=== PATIENT | male | born 1955 | race Caucasian/White ===

== ENCOUNTER → 2020-11-02 14:17 | Outpatient (BNVA) | payer MEDICARE, SELFPAY | PROVIDERS: PCP Nurse Practitioner Family; Visit Provider Physician Assistant Medical | DX: Z76.89 Persons encountering health services in other specified circumstances (principal) | CPT/HCPCS: G0296 ==

== ENCOUNTER 2022-02-07 11:40 | Outpatient (REF) | payer MEDICARE, SELFPAY ==
[2022-02-07 13:52] LABS: Appearance Urine CLEAR; Color Urine YELLOW; Glucose Urine UA NEG (NEG); Leukocyte Esterase Urine NEG (NEG); Nitrite Urine NEG (NEG); PH 6.5 (5.0-8.0); Urine Blood NEG (NEG); Urine Ketones NEG (NEG); Urine Protein NEG (NEG-TRACE)
[2022-02-07 13:59] LABS: Alanine Aminotransferase 15 U/L (0-40); Albumin Level 3.9 g/dL (3.5-5.0); Alkaline Phosphatase 68 U/L (39-117); Anion Gap 10 (12-20); Aspartate Amino Transferase 14 U/L (5-37); Bilirubin Total 0.6 mg/dL (0.0-1.0); Blood Urea Nitrogen 15 mg/dL (9-16); Carbon Dioxide 27 mmol/L (22-29); Chloride 105 mmol/L (96-108); Cholesterol 193 mg/dL; Estimated Glomerular Filt Rate > 60; Glucose Fasting 107 mg/dL (60-99); HDL Cholesterol 39 mg/dL; LDL Cholesterol Calculated 119 mg/dl; Potassium 4.1 mmol/L (3.3-5.1); Sodium 138 mmol/L (135-145); Total Protein 6.7 g/dL (6.5-8.0); Triglycerides 175 mg/dL
[2022-02-07 14:24] LABS: Prostate Specific Antigen Scr < 0.05 ng/mL (<0.05-4.0); TSH reflex Free T4 1.91 uIU/mL (0.32-4.0)
== END 2022-02-07 11:41 | disposition home or self-care (01) ==
LOC: HO.HMGCLDS 11:40
PROVIDERS: PCP Nurse Practitioner Family; Visit Provider Nurse Practitioner Family
DX: Z00.00 Encounter for general adult medical examination without abnormal findings (principal); Z12.5 Encounter for screening for malignant neoplasm of prostate
CPT/HCPCS: 36415; 80053; 80061; 81003; 84153; 84443

== ENCOUNTER 2022-11-13 08:50 | Outpatient (REF) | payer MEDICARE, SELFPAY ==
[2022-11-13 11:20] LABS: MANUAL DIFF FLAG NO
[2022-11-13 11:31] LABS: Appearance Urine Hazy; Color Urine Yellow; Glucose Urine UA Negative (Negative); Leukocyte Esterase Urine Negative (Negative); Nitrite Urine Negative (Negative); PH 6.5 (5.0-9.0); UMIC TRIGGER UACC YES; Urine Blood Trace (Negative); Urine Ketones Negative (Negative); Urine Protein Negative (Neg-Trace)
[2022-11-13 11:44] LABS: Basophils Percent Auto 0.2 % (0-2); Eosinophils Absolute Auto 0.1 X10*3/uL (0.0-0.4); Eosinophils Percent Auto 1.3 % (0-4); Hemoglobin 14.3 g/dl (14.0-18.0); Imm Gran Abs Auto 0.04 X10*3/uL (0.00-0.03); Imm Gran Pct Auto 0.4 % (0.0-0.4); Lymphocytes Absolute Auto 1.5 X10*3/uL (1.2-4.9); Lymphocytes Percent Auto 16.1 % (20-40); Mean Corpuscular Hemoglobin 30.7 pg (27.0-33.0); Mean Corpuscular Volume 90.1 fL (80.0-98.0); Mean Platelet Volume 9.3 fL (9.4-12.4); Monocytes Absolute Auto 0.8 X10*3/uL (0.1-1.2); Monocytes Percent Auto 8.5 % (2-11); Neutrophils Absolute Auto 6.9 x10*3/uL (2.0-8.3); Neutrophils Percent Auto 73.5 % (45-73); Platelet Count 224 X10*3/uL (160-400); Red Blood Count 4.66 X10*6/uL (4.60-5.80); Red Cell Distribution Width 12.6 % (11.0-16.0); White Blood Count 9.4 X10*3/uL (4.8-10.8)
[2022-11-13 11:49] LABS: Bacteria Urine None Seen (None Seen); Hyaline Casts Urine 0-2 /LPF (0-2); RBC Urine 0-2 /HPF (0-2); Squamous Epithelial Cell Urine 0-2 /HPF (0-2); WBC Urine 0-5 /HPF (0-5)
[2022-11-13 14:01] LABS: Alanine Aminotransferase 11 U/L (0-40); Alkaline Phosphatase 70 U/L (39-117); Anion Gap 12 (12-20); Aspartate Amino Transferase 12 U/L (5-37); Bilirubin Total 0.9 mg/dL (0.0-1.0); Blood Urea Nitrogen 14 mg/dL (9-16); Calcium 8.8 mg/dL (8.4-10.2); Carbon Dioxide 26 mmol/L (22-29); Chloride 101 mmol/L (96-108); Cholesterol 184 mg/dL; Estimated Glomerular Filt Rate > 60; Glucose Fasting 105 mg/dL (60-99); HDL Cholesterol 38 mg/dL; LDL Cholesterol Calculated 128 mg/dl; Potassium 4.5 mmol/L (3.3-5.1); Sodium 134 mmol/L (135-145); TSH reflex Free T4 1.86 uIU/mL (0.32-4.0); Total Protein 6.9 g/dL (6.5-8.0); Triglycerides 93 mg/dL
== END 2022-11-13 08:51 | disposition home or self-care (01) ==
LOC: HO.HMGCLDS 08:50
PROVIDERS: PCP Nurse Practitioner Family; Visit Provider Nurse Practitioner Family
DX: I10 Essential (primary) hypertension (principal)
CPT/HCPCS: 36415; 80053; 80061; 81001; 84443; 85025

== ENCOUNTER 2025-07-14 15:20 | Outpatient (AMB) | payer MEDICARE, SELFPAY ==
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
[2025-07-14 15:24] VITALS: BP 138/74; PULSE 97; TEMP 37; O2SAT 97; BMI 21.3
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
== END 2025-07-14 16:08 | disposition home or self-care (01) ==
PROVIDERS: Visit Provider Physician Assistant
DX: R31.0 Gross hematuria (principal); Z91.89 Other specified personal risk factors, not elsewhere classified

== ENCOUNTER → 2025-07-14 15:20 | Outpatient (BNVA) | payer MEDICARE, SELFPAY | PROVIDERS: Visit Provider Physician Assistant | DX: R31.0 Gross hematuria (principal); Z91.89 Other specified personal risk factors, not elsewhere classified | CPT/HCPCS: 99212 ==

== ENCOUNTER 2025-07-14 16:34 | Emergency (ER) | payer OTHER, SELFPAY ==
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
[2025-07-14 16:47] VITALS: BP 158/86; PULSE 95; RESP 18; TEMP 36.6; O2SAT 98; BMI 21.3
[2025-07-14 17:13] LABS: MANUAL DIFF FLAG NO
[2025-07-14 17:14] LABS: Hematocrit 37.5 % (42.0-52.0); Hemoglobin 12.6 g/dl (14.0-18.0); Imm Gran Abs Auto 0.06 X10*3/uL (0.00-0.03); Imm Gran Pct Auto 0.5 % (0.0-0.4); Lymphocytes Absolute Auto 1.9 X10*3/uL (1.2-4.9); Mean Corpuscular HGB Conc 33.6 g/dl (31.0-36.0); Mean Corpuscular Hemoglobin 29.2 pg (27.0-33.0); Mean Corpuscular Volume 87.0 fL (80.0-98.0); NRBC Abs Auto 0.000 X10*3/uL (0.0-0.012); NRBC Pct Auto 0.0 /100WBC (0.0-0.2); Platelet Count 286 X10*3/uL (160-400); Red Blood Count 4.31 X10*6/uL (4.60-5.80); White Blood Count 11.9 X10*3/uL (4.8-10.8)
[2025-07-14 17:27] LABS: Alanine Aminotransferase 11 U/L (0-40); Albumin Level 3.6 g/dL (3.5-5.0); Alkaline Phosphatase 66 U/L (39-117); Anion Gap 13 (12-20); Aspartate Amino Transferase 16 U/L (5-37); Blood Urea Nitrogen 21 mg/dL (9-16); Calcium 9.1 mg/dL (8.4-10.2); Carbon Dioxide 29 mmol/L (22-29); Chloride 99 mmol/L (96-108); Creatinine Clr Calc Pharmacy 77.3; Estimated Glomerular Filt Rate > 60; Potassium 4.3 mmol/L (3.3-5.1); Sodium 137 mmol/L (135-145); Total Protein 7.4 g/dL (6.5-8.0)
--- NOTE | 2025-07-14 21:00 | PC.NURSE ---
Went into patient's room to place IV and get patient changed into hospital attire for CT scan. Patient stating I dont want no fucking IV, I wanna get outta here . Provider Chalino made aware. Chalino to bedside, explained to patient importance of needing IV and CT scan again. Patient insistent he does not want a scan, just wants to go home. Support person Magalys stating she will not leave until patient is scanned. Patient still demanding to leave. AMA form signed by patient. Patient awaiting for support person to finish talking to provider to leave.
[2025-07-14 21:17] VITALS: BP 158/86; PULSE 95; RESP 18; TEMP 36.6; O2SAT 98
== END 2025-07-14 21:18 | disposition left against medical advice (07) ==
PROVIDERS: Nurse Practitioner Family; Emergency Provider Emergency Medicine; PCP Nurse Practitioner Family
DX: K92.2 Gastrointestinal hemorrhage, unspecified (principal); F17.210 Nicotine dependence, cigarettes, uncomplicated; Z79.899 Other long term (current) drug therapy
CPT/HCPCS: 36415; 80048; 80076; 85025; 99282; 99283

== ENCOUNTER 2025-09-08 14:16 | Emergency (ER) | payer MEDICARE, MEDICAID, SELFPAY ==
--- NOTE | ~2025-09-08 | XR_ITS ---
EXAMINATION: XR CHEST CLINICAL INFORMATION: ?ams COMPARISON: 10/20/2017. TECHNIQUE: Frontal view of the chest was obtained. FINDINGS: The cardiac, hilar, and mediastinal contours are normal. The lungs are clear bilaterally. No pneumothorax or effusion. No focal osseous or soft tissue abnormality. XR/XR chest 1V IMPRESSION: No active pulmonary disease. Electronically signed by: Chalino Pacheco MD 09/08/2025 05:14 PM EDT
--- NOTE | ~2025-09-08 | CT_ITS ---
CLINICAL HISTORY: ftt, confusion CT head without contrast. COMPARISON: None provided. FINDINGS: The visualized paranasal sinuses are clear. The mastoid air cells are clear. No calvarial fracture. Atherosclerotic intracranial vasculature. No evidence for mass or mass effect. No intracranial hemorrhage or abnormal extra-axial fluid collection. No CT evidence of acute infarct. Chronic encephalomalacia within the bilateral frontal lobes, left temporal lobe, and superior right parietal lobe consistent with remote infarcts. The ventricles are proportional with the degree of moderate global cerebral volume loss without evidence of hydrocephalus. Basilar cisterns are patent. There are periventricular areas of low attenuation compatible with mild white matter small vessel disease. Posterior fossa appears unremarkable. IMPRESSION: 1. No acute intracranial findings. This document has been electronically signed by: Les Leung MD on 09/08/2025 18:25:36
[2025-09-08 14:44] VITALS: BP 118/71; PULSE 94; RESP 18; TEMP 37; O2SAT 98; BMI 20.2
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
[2025-09-08 16:29] LABS: Hematocrit 35.1 % (42.0-52.0); Hemoglobin 11.5 g/dl (14.0-18.0); Imm Gran Abs Auto 0.10 X10*3/uL (0.00-0.03); Imm Gran Pct Auto 0.5 % (0.0-0.4); Lymphocytes Absolute Auto 1.8 X10*3/uL (1.2-4.9); MANUAL DIFF FLAG NO; Mean Corpuscular HGB Conc 32.8 g/dl (31.0-36.0); Mean Corpuscular Hemoglobin 27.8 pg (27.0-33.0); Mean Corpuscular Volume 85.0 fL (80.0-98.0); NRBC Abs Auto 0.000 X10*3/uL (0.0-0.012); NRBC Pct Auto 0.0 /100WBC (0.0-0.2); Platelet Count 255 X10*3/uL (160-400); Red Blood Count 4.13 X10*6/uL (4.60-5.80); White Blood Count 18.9 X10*3/uL (4.8-10.8)
[2025-09-08 16:35] LABS: Ammonia 18 umol/L (13-55)
[2025-09-08 16:44] LABS: Alanine Aminotransferase 13 U/L (0-40); Albumin Level 3.2 g/dL (3.5-5.0); Alkaline Phosphatase 69 U/L (39-117); Anion Gap 11 (12-20); Aspartate Amino Transferase 20 U/L (5-37); Blood Urea Nitrogen 22 mg/dL (9-16); Calcium 8.6 mg/dL (8.4-10.2); Carbon Dioxide 27 mmol/L (22-29); Chloride 99 mmol/L (96-108); Creatinine Clr Calc Pharmacy 84.7; Estimated Glomerular Filt Rate > 60; Magnesium 2.1 mg/dL (1.6-2.6); Potassium 4.2 mmol/L (3.3-5.1); Sodium 133 mmol/L (135-145); Total Protein 6.8 g/dL (6.5-8.0)
--- NOTE | 2025-09-08 17:45 | PC.NURSE ---
Pt incontinent of bowel and bladder. Stated he needed to use the restroom but was too late; suspect urgency
[2025-09-08] MEDS: Nicotine 21 MG PATCH.TD24 TRANSDERMA (18:51)
--- NOTE | 2025-09-08 20:46 | PC.NURSE ---
Pt refuses str cath for urine
[2025-09-08 20:47] VITALS: BP 109/67; PULSE 74; RESP 16; TEMP 36.6; O2SAT 97
--- NOTE | 2025-09-08 20:50 | PC.NURSE ---
Report to ED overflow RN
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
--- NOTE | 2025-09-08 22:19 | PC.NURSE ---
Report received a couple hours ago however the pt is just arriving to OF via stretcher with EDT. The pt was noted to be wearing soiled pants with stool on them and staff assisted/directed him to the restroom at which time he was noted to ambulate with a slight limp and a minimal 1 assist. The pt reports pain to the right leg primarily when he moves it but is unable to quantify the pain at this time. The pt was assisted with erick care and provided clean clothing before being shown to his bed. The pt has a nicotine patch to the left shoulder, can be a bit abrassive towards/with staff but is otherwise pleasant and cooperative. The pt has a elopement band in place and this RN confirmed that it is on, working, and tracking on the specialized platform. His call gallagher is in reach.
[2025-09-08 22:20] VITALS: BP 110/69; PULSE 80; RESP 20; TEMP 36.8; O2SAT 98
--- NOTE | 2025-09-08 23:10 | PC.NURSE ---
RN realized patient does not have a current diet order in place, tigFoodcloudect message sent to ed case management provider to confirm that a regular diet would be appropriate for him. RN awaiting communication back, will follow up with CHARLES personally once report is given to oncoming RN
[2025-09-09 06:32] VITALS: BP 152/76; PULSE 59; RESP 18; TEMP 36.2; O2SAT 99
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
--- NOTE | 2025-09-09 10:18 | PHA.MEDREC ---
Pharmacy Consult ? Medication Reconciliation Pharmacy has completed the medication reconciliation. Patient was on lisinopril and atorvastatin (unknown dose) but hasnt been taking or using VA services in long time per Francesco ( friend) and rupinder (director of VA services)
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
--- NOTE | 2025-09-09 15:42 | MHC.EDTECH ---
pt was able to use the bathroom to do a BM but couldnt pee the urinal. pt decided to pee in the toilet instead of the urinal.
--- NOTE | 2025-09-09 15:43 | PC.NURSE ---
Went to bathroom again, had BM, no urine.
[2025-09-09 15:45] VITALS: BP 119/67; PULSE 65; RESP 16; TEMP 36.7; O2SAT 100
--- NOTE | 2025-09-09 15:46 | MHC.CM.PN ---
CM RECEIVED CM CONSULT FROM ED PROVIDER BRANDIN BOJORQUEZ, CM MET W/PT AT BEDSIDE WHO REPORTS HE WOULD LIKE TO GO BACK TO HOTEL HOWEVER DOES NOT RECALL THE NAME OF IT ONLY THAT IT IS IN [place]. PT GACVE CM PERMISSION TO CONTACT PT'S VA WORKER RICARDO [phone]. CM LEFT MESSAGE FOR RICARDO EARLY IN SHIFT, CM RECEIVED CALL BACLK AND RICARDO REPORTS THAT PT IS NOT 100% VA CONNECTED AND JUST STARTED WORKING W/VA IN NOVEMBER OF THIS YEAR AFTER ISSUES W/RENT NOT BEING PAID. RICARDO REPORTS ISSUES W/BACK RENT WERE RESOLVED AND HE HAS BEEN WORKING W/PT, RICARDO WOULD LIKE VNA FOR PT AND REF TO BE PLACED TO [facility] AND MED MANAGEMENT, WELL REFERRAL/TASK TO [facility], RICARDO REPORTS THERE WAS SOME KIND OF ISSUE WITH PREVIOUS CAREGIVER AND PT HAS BEEN WITHOUT FOR SOME TIME. RICARDO REPORTS HE CAN METAL [facility]ENCH PATTERNMAKER TOMORROW AM 10/12 AND BRING HIM BACK TO [facility] AND THAT PT ONLY HAD ONE EPISODE OF INCONTINENCE THAT RICARDO HAS CLEANED UP AND PURCHASED NEW CLOTHES FOR PT. [facility] IS WORKING ON RESOLVING APT ISSUES W/APT FLOODING OR POSSIBLY MOVING PT INTO ANOTHER STUDIO APT. [facility] IS PAID FOR FOR 14 DAYS.
--- NOTE | 2025-09-09 16:01 | PC.NURSE ---
Per Lucy Potts (case management): Magno Chaparro will be here overnight and his VA worker will pick him up at 10am tomorrow and get him settled back in his hotel [[facility]]. He only had one episode of incontinence and his VA worker has purchased new clothing etc for him.
--- NOTE | 2025-09-09 16:46 | PC.NURSE ---
Requested Ceftin 500mg from pharmacy. Will medicate upon receipt.
[2025-09-09 17:31] LABS: MANUAL DIFF FLAG NO
[2025-09-09 17:32] LABS: Hematocrit 34.2 % (42.0-52.0); Hemoglobin 11.0 g/dl (14.0-18.0); Imm Gran Abs Auto 0.07 X10*3/uL (0.00-0.03); Imm Gran Pct Auto 0.8 % (0.0-0.4); Lymphocytes Absolute Auto 2.3 X10*3/uL (1.2-4.9); Mean Corpuscular HGB Conc 32.2 g/dl (31.0-36.0); Mean Corpuscular Hemoglobin 27.8 pg (27.0-33.0); Mean Corpuscular Volume 86.6 fL (80.0-98.0); NRBC Abs Auto 0.000 X10*3/uL (0.0-0.012); NRBC Pct Auto 0.0 /100WBC (0.0-0.2); Platelet Count 266 X10*3/uL (160-400); Red Blood Count 3.95 X10*6/uL (4.60-5.80); White Blood Count 9.1 X10*3/uL (4.8-10.8)
[2025-09-09 17:45] LABS: Alanine Aminotransferase 10 U/L (0-40); Albumin Level 3.1 g/dL (3.5-5.0); Alkaline Phosphatase 57 U/L (39-117); Anion Gap 8 (12-20); Aspartate Amino Transferase 17 U/L (5-37); Blood Urea Nitrogen 18 mg/dL (9-16); Calcium 8.5 mg/dL (8.4-10.2); Carbon Dioxide 29 mmol/L (22-29); Chloride 102 mmol/L (96-108); Creatinine Clr Calc Pharmacy 77.6; Estimated Glomerular Filt Rate > 60; Potassium 3.9 mmol/L (3.3-5.1); Sodium 135 mmol/L (135-145); Total Protein 6.6 g/dL (6.5-8.0)
[2025-09-09 22:04] VITALS: BP 119/77; PULSE 74; RESP 16; TEMP 37.2; O2SAT 100
--- NOTE | 2025-09-10 01:09 | PC.NURSE ---
pt attempt to use urinal to void, unable to at this time. UA still pending
--- NOTE | 2025-09-10 03:08 | PC.NURSE ---
pt walked to the bathroom with no clothes on, urinated all over the floor. env mopped area, bed changed
--- NOTE | 2025-09-10 06:09 | PC.NURSE ---
multiple episodes of incontinence overnight, pt awakes to go to the bathroom but never makes it. unable to use urinal at bedside, too frantic to get to the bathroom. too agitated to accept help with urinal. last episode 0600, possible watery stool incontinence as well, or very foul smelling urine, or both. pericare completed in bathroom despite pt's protest, new pants and socks on, room cleaned again. still unable to obtain UA. pt refusing straight cath
[2025-09-10 08:01] VITALS: BP 134/76; PULSE 76; RESP 18; TEMP 36.6; O2SAT 98
--- NOTE | 2025-09-10 09:25 | PC.NURSE ---
Assumed care of pt approx 0700, pt up OOB and ambulated to bathroom multiple times this AM. Reports loose stool. Pt removed own IV to R FA.
--- NOTE | 2025-09-10 10:58 | MHC.CM.PN ---
PT DISCHARGING FROM ED W/VA WORKER RICARDO WHO WILL BRING PT BACK TO [facility] AND GET PT SETTLED, TASK SENT TO [facility] IN [place], PT HAS NO PCP AND COMFORT PLUS VNA UPDATED. RICARDO IS AWARE PT WILL NOT HAVE VNA SERVICES D/T LACK OF PCP. RICARDO AGREEABLE TO BEING CONTACT FOR [facility]. NSG/ED PROVIDER AWARE.
--- NOTE | 2025-09-10 11:18 | MHC.EDTECH ---
patient went to bathroom multiple time. Gave patient particle wash up refused batheing. Nurse aware
[2025-09-10 11:40] VITALS: BP 134/76; PULSE 76; RESP 18; TEMP 36.6; O2SAT 98
== END 2025-09-10 12:06 | disposition home or self-care (01) ==
PROVIDERS: Physician Assistant; Physician Assistant Medical; Emergency Provider Emergency Medicine; PCP Nurse Practitioner Family
DX: R62.7 Adult failure to thrive (principal); N39.498 Other specified urinary incontinence; R41.0 Disorientation, unspecified; F17.210 Nicotine dependence, cigarettes, uncomplicated; Z79.899 Other long term (current) drug therapy
CPT/HCPCS: 36415; 70450; 71045; 80048; 80053; 80076; 82140; 82550; 83605; 83735; 85025; 87040; 99285; J0696

== ENCOUNTER → 2025-09-08 16:53 | Outpatient (BNV) | payer MEDICARE, MEDICAID, SELFPAY | PROVIDERS: Emergency Provider Emergency Medicine; PCP Nurse Practitioner Family; Visit Provider Radiology Diagnostic Radiology | DX: R62.7 Adult failure to thrive (principal); R14.0 Abdominal distension (gaseous) | CPT/HCPCS: 70450; 71045 ==

== ENCOUNTER 2025-09-12 20:24 | Emergency (ER) | payer MEDICARE, MEDICAID, SELFPAY ==
[2025-09-12 20:31] VITALS: PULSE 82; O2SAT 97
[2025-09-12 20:39] VITALS: BP 121/68; PULSE 80; RESP 18; TEMP 36.8; O2SAT 98; BMI 21.0
[2025-09-12 20:43] VITALS: BP 125/81; PULSE 85; RESP 12; TEMP 36.8; O2SAT 98
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
--- NOTE | 2025-09-12 20:53 | PC.NURSE ---
Addendum entered by Erin Chapa RN 09/12/25 21:00: Taran Cline ([place] Services Director)- [phone] Original Note: [place]'s public services assistant here at bedside, expressing concern of decline in mental status. States pt was [place] [facility] [place], since pts status has worsened. director of occupational therapy showed up today at pts place of stay and there are concerns pt unable to care for himself and perform basic ADLs, pts has been incontinent of urine and stool.
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
[2025-09-12 22:15] LABS: MANUAL DIFF FLAG NO
[2025-09-12 22:17] LABS: Hematocrit 31.1 % (42.0-52.0); Hemoglobin 10.5 g/dl (14.0-18.0); Imm Gran Abs Auto 0.09 X10*3/uL (0.00-0.03); Imm Gran Pct Auto 0.7 % (0.0-0.4); Lymphocytes Absolute Auto 2.2 X10*3/uL (1.2-4.9); Mean Corpuscular HGB Conc 33.8 g/dl (31.0-36.0); Mean Corpuscular Hemoglobin 28.6 pg (27.0-33.0); Mean Corpuscular Volume 84.7 fL (80.0-98.0); NRBC Abs Auto 0.000 X10*3/uL (0.0-0.012); NRBC Pct Auto 0.0 /100WBC (0.0-0.2); Platelet Count 231 X10*3/uL (160-400); Red Blood Count 3.67 X10*6/uL (4.60-5.80); White Blood Count 12.4 X10*3/uL (4.8-10.8)
[2025-09-12 22:32] LABS: Alanine Aminotransferase 10 U/L (0-40); Albumin Level 3.0 g/dL (3.5-5.0); Alkaline Phosphatase 59 U/L (39-117); Anion Gap 10 (12-20); Aspartate Amino Transferase 16 U/L (5-37); Blood Urea Nitrogen 15 mg/dL (9-16); Calcium 8.3 mg/dL (8.4-10.2); Carbon Dioxide 25 mmol/L (22-29); Chloride 103 mmol/L (96-108); Creatinine Clr Calc Pharmacy 114.4; Estimated Glomerular Filt Rate > 60; Lipase 52 U/L (8-78); Potassium 4.1 mmol/L (3.3-5.1); Sodium 134 mmol/L (135-145); Total Protein 6.4 g/dL (6.5-8.0)
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
[2025-09-12 23:50] VITALS: BP 98/56; PULSE 70; TEMP 36.5; O2SAT 97
[2025-09-13 10:36] VITALS: BP 145/67; PULSE 68; RESP 17; TEMP 36.7; O2SAT 96
[2025-09-13 11:04] LABS: Resp Syncy Virus RNA Qual PCR NEGATIVE (Negative); SARS COV2 PCR INHOUSE NEGATIVE (Negative)
--- NOTE | 2025-09-13 13:58 | MHC.CM.ED ---
Patient remains in ER. Physical therapy eval completed. Short [facility]. Met with patient in regards to discharge planning. Patient agreeable to STR at [facility]. Aware he will most likely be in the ER overnight. Waiting to hear from [facility] if patient has HCP on file. [facility] has been asked to obtain ins auth. Continue to monitor for d/c needs.
[2025-09-13 14:41] VITALS: BP 122/81; PULSE 77; RESP 16; TEMP 36.8; O2SAT 97
--- NOTE | 2025-09-13 21:16 | MHC.CM.ED ---
Magno is aware that he will discharge to [facility] tomorrow 09/14 at 9am via [facility]. He is agreeable.
[2025-09-14 05:34] VITALS: BP 132/83; PULSE 67; RESP 18; TEMP 36.2; O2SAT 100
[2025-09-14 08:43] VITALS: BP 124/57; PULSE 74; RESP 15; TEMP 36.7; O2SAT 97
[2025-09-14 09:14] VITALS: BP 124/57; PULSE 74; RESP 15; TEMP 36.7; O2SAT 97
== END 2025-09-14 09:15 ==
PROVIDERS: Physician Assistant Medical; Emergency Provider Emergency Medicine Emergency Medical Services; PCP Nurse Practitioner Family
DX: R62.7 Adult failure to thrive (principal); I10 Essential (primary) hypertension; E78.5 Hyperlipidemia, unspecified; Z03.818 Encounter for observation for suspected exposure to other biological agents ruled out; F17.200 Nicotine dependence, unspecified, uncomplicated; Z71.6 Tobacco abuse counseling
CPT/HCPCS: 36415; 80048; 80076; 83690; 85025; 87637; 97162; 99284